=== PATIENT | female | born 1930 | race Hispanic/Latino ===

== ENCOUNTER 2016-12-10 09:18 | Emergency (ER) | payer MEDICARE ==
[2016-12-10 15:26] LABS: Hematocrit 39.8 % (30.3-42.9); Hemoglobin 13.5 gm/dl (10.1-14.3); Mean Corpuscular HGB Conc 34 % (30-34); Mean Corpuscular Hemoglobin 32 pg (28-32); Mean Corpuscular Volume 94 fl (79-97); Platelet Count 248 K/mm3 (140-440); Red Blood Count 4.22 M/mm3 (3.65-5.03); Red Cell Distribution Width 12.4 % (13.2-15.2); White Blood Count 6.4 K/mm3 (4.5-11.0)
[2016-12-10 15:39] LABS: Anion Gap 16 mmol/L; BUN/Creatinine Ratio 21.66; Blood Urea Nitrogen 13 mg/dL (7-17); Calcium 8.7 mg/dL (8.4-10.2); Carbon Dioxide 30 mmol/L (22-30); Chloride 101.6 mmol/L (98-107); Glucose 86 mg/dL (65-100); Potassium 3.6 mmol/L (3.6-5.0); Sodium 144 mmol/L (137-145)
--- NOTE | 2016-12-10 16:39 | XRay Report ---
RIGHT HIP TWO VIEWS: 12/10/16 09:18:00 CLINICAL: Right hip pain. FINDINGS: No fracture or dislocation.Moderate osteoarthritis. Superolateral joint space narrowing and a small superolateral and small inferior osteophyte. Similar changes in the left hip. Mild bilateral SI joint sclerosis. Degenerative changes in the lower lumbar spine. Normal soft tissues. IMPRESSION: Osteoarthritis.
[2016-12-10] MEDS ORDERED: TORADOL IM ONE (16:43)
[2016-12-10] MEDS ORDERED: PERCOCET 5/325 PO ONE (16:43)
[2016-12-10 17:17] LABS: Bilirubin,Urine NEG (Negative); Blood,Urine NEG (Negative); Ketones,Urine NEG (Negative); Leukocyte Esterase,Urine NEG (Negative); Mucus,Urine FEW /HPF; Nitrite,Urine NEG (Negative); Protein,Urine <15 mg/dL mg/dL (Negative); Urobilinogen,Urine < 2.0 mg/dL (<2.0)
--- NOTE | 2016-12-10 18:47 | Emergency Department Report ---
ED Extremity Problem HPI - General Chief complaint: Extremity Injury, Lower Stated complaint: RT LEG SWELLING/PAIN Time Seen by Provider: 12/10/16 14:30 Source: patient Mode of arrival: Ambulatory Limitations: Physical Limitation - History of Present Illness Initial comments: 86-year-old female with a past medical history of arthritis, diabetes, and hypertension presents to the hospital complaining of right hip/leg pain and swelling. Symptoms ongoing for greater than 1 year. Patient states pain is constant, rated nonspecific in intensity, worse with movements or positions. Patient states she has trouble abducting her legs due to the pain in the right side. Patient thinks the right leg is more swollen than the left. She has seen multiple physicians and states they can't figure out was from her. Patient denies any recent injury, dysuria, nausea, vomiting, constipation, or fever. Severity scale (0 -10): 5 - Related Data Home Medications Medication Instructions Recorded Confirmed Last Taken Lisinopril [Zestril TAB] 20 mg PO DAILY 01/29/14 11/07/15 11/07/15 05:30 traMADol [Ultram 50 MG tab] 50 mg PO Q6H PRN 01/29/14 11/07/15 11/05/14 Aspirin [Adult Low Dose Aspirin EC] 81 mg PO DAILY 11/01/15 11/07/15 11/01/15 clonazePAM [ Klonopin] 0.5 mg PO BID PRN 11/01/15 11/07/15 11/06/15 Previous Rx's Medication Instructions Recorded Last Taken Type Ibuprofen [Motrin] 600 mg PO Q6H PRN #30 tablet 11/07/15 Unknown Rx Docusate Sodium [Colace] 100 mg PO BID PRN #30 capsule 11/16/15 Unknown Rx oxyCODONE /ACETAMINOPHEN [Percocet 1 tab PO Q6HR PRN #20 tablet 11/16/15 Unknown Rx 5/325 mg] Allergies Allergy/AdvReac Type Severity Reaction Status Date / Time iv contrast Allergy Rash Uncoded 12/10/16 09:24 ED Review of Systems ROS: Stated complaint: RT LEG SWELLING/PAIN Other details as noted in HPI Comment: All other systems reviewed and negative Other: Constitutional: No fevers chills Eyes: No eye pain visual changes ENT: No ear pain or throat pain Neck: Denies pain Respiratory: Denies cough wheezing shortness of breath Cardiovascular: Denies chest pain, palpitations, syncope GI: Denies abdominal pain, nausea, vomiting, diarrhea : Denies dysuria Musculoskeletal: as per hpi Skin: Denies rash, lesions, erythema Neurologic: Denies headache, numbness, weakness Psychiatric: Denies suicidal ideation, hallucinations ED Past Medical Hx - Past Medical History Hx Hypertension: Yes Hx Diabetes: Yes Hx Renal Disease: (Renal stones) Hx Arthritis: Yes Hx Headaches / Migraines: Yes Hx Seizures: No Hx Kidney Stones: Yes Hx Asthma: No Additional medical history: L adrenal mass - Surgical History Additional Surgical History: LEFT ADRENAL GLAND REMOVED. HYSTOSCOPY - Social History Smoking Status: Current Some Day Smoker Substance Use Type: None - Medications Home Medications: Home Medications Medication Instructions Recorded Confirmed Last Taken Type Lisinopril [Zestril TAB] 20 mg PO DAILY 01/29/14 11/07/15 11/07/15 05:30 History traMADol [Ultram 50 MG tab] 50 mg PO Q6H PRN 01/29/14 11/07/15 11/05/14 History Aspirin [Adult Low Dose Aspirin EC] 81 mg PO DAILY 11/01/15 11/07/15 11/01/15 History clonazePAM [ Klonopin] 0.5 mg PO BID PRN 11/01/15 11/07/15 11/06/15 History Ibuprofen [Motrin] 600 mg PO Q6H PRN #30 tablet 11/07/15 Unknown Rx Docusate Sodium [Colace] 100 mg PO BID PRN #30 capsule 11/16/15 Unknown Rx oxyCODONE /ACETAMINOPHEN [Percocet 1 tab PO Q6HR PRN #20 tablet 11/16/15 Unknown Rx 5/325 mg] ED Physical Exam - General Limitations: Physical Limitation - Other Other exam information: General: No limitations, patient is alert in no acute distress Head exam: Atraumatic, normocephalic Eyes exam: Normal appearance ENT: Moist mucous membrane, normal oropharynx Neck exam: Normal inspection, full range of motion Respiratory exam: Clear to auscultation bilateral, no wheezes, rales, crackles Cardiovascular: Normal rate and rhythm, normal heart sounds Abdomen: Soft, nondistended, and nontender, with normal bowel sounds, no rebound, or guarding Extremity: mild right leg swelling compared to the left. No tenderness to the leg however, patient has tenderness to the inguinal area on the right. Pain is greatest at the hip joint and worsens with right leg abduction. 2+ DP pulses. No shortening or rotation noted. no Calf tenderness. Back: Normal Inspection, full range of motion, no tenderness Neurologic: Alert, oriented x3, cranial nerves intact, no motor or sensory deficit Psychiatric: normal affect, normal mood Skin: Warm, dry, intact ED Course Vital Signs 12/10/16 12/10/16 09:25 14:37 Temperature 97.9 F 97.6 F Pulse Rate 79 61 Respiratory 18 16 Rate Blood Pressure 196/89 Blood Pressure 160/54 [Left] O2 Sat by Pulse 100 100 Oximetry - Reevaluation(s) Reevaluation #1: 12/10/16 18:54 Pt treated with toradol since she will be driving home. ED Medical Decision Making - Lab Data Result diagrams: 12/10/16 15:00 12/10/16 15:00 Lab Results 12/10/16 12/10/16 12/10/16 Range/Units 15:00 15:00 16:44 WBC 6.4 (4.5-11.0) K/mm3 RBC 4.22 (3.65-5.03) M/mm3 Hgb 13.5 (10.1-14.3) gm/dl Hct 39.8 (30.3-42.9) % MCV 94 (79-97) fl MCH 32 (28-32) pg MCHC 34 (30-34) % RDW 12.4 L (13.2-15.2) % Plt Count 248 (140-440) K/mm3 Lymph % (Auto) 31.4 (13.4-35.0) % Ross % (Auto) 9.9 H (0.0-7.3) % Eos % (Auto) 2.0 (0.0-4.3) % Baso % (Auto) 1.0 (0.0-1.8) % Lymph # 2.0 (1.2-5.4) K/mm3 Ross # 0.6 (0.0-0.8) K/mm3 Eos # 0.1 (0.0-0.4) K/mm3 Baso # 0.1 (0.0-0.1) K/mm3 Seg Neutrophils % 55.7 (40.0-70.0) % Seg Neutrophils # 3.6 (1.8-7.7) K/mm3 Sodium 144 (137-145) mmol/L Potassium 3.6 (3.6-5.0) mmol/L Chloride 101.6 (98-107) mmol/L Carbon Dioxide 30 (22-30) mmol/L Anion Gap 16 mmol/L BUN 13 (7-17) mg/dL Creatinine 0.6 L (0.7-1.2) mg/dL Estimated GFR > 60 ml/min BUN/Creatinine Ratio 21.66 % Glucose 86 (65-100) mg/dL Calcium 8.7 (8.4-10.2) mg/dL Urine Color Yellow (Yellow) Urine Turbidity Clear (Clear) Urine pH 6.0 (5.0-7.0) Ur Specific [place] 1.020 (1.003-1.030) Urine Protein <15 mg/dl (Negative) mg/dL Urine Glucose (UA) Neg (Negative) mg/dL Urine Ketones Neg (Negative) mg/dL Urine Blood Neg (Negative) Urine Nitrite Neg (Negative) Urine Bilirubin Neg (Negative) Urine Urobilinogen < 2.0 (<2.0) mg/dL Ur Leukocyte Esterase Neg (Negative) Urine WBC (Auto) 2.0 (0.0-6.0) /HPF Urine RBC (Auto) 1.0 (0.0-6.0) /HPF U Epithel Cells (Auto) 6.0 (0-13.0) /HPF Urine Mucus Few /HPF - Radiology Data Radiology results: report reviewed Right hip x-ray with pelvis: Osteoarthritis Preliminary Doppler right leg: No signs of DVT - Medical Decision Making Plan to discharge patient home. She has Percocet at home for pain. No additional medication was prescribed. Outpatient orthopedic follow-up recommended for findings of osteoarthritis and chronic hip pain - Differential Diagnosis arthritis, sciatica, DVT, infection Critical Care Time: No Critical care attestation.: If time is entered above; I have spent that time in minutes in the direct care of this critically ill patient, excluding procedure time. ED Disposition Clinical Impression: Bilateral hip osteonecrosis, Chronic pain of right lower extremity Disposition: DISCHARGED TO HOME OR SELFCARE Is pt being admited?: No Does the pt Need Aspirin: No Condition: Stable Instructions: Osteoarthritis (ED), Chronic Pain (ED) Additional Instructions: Continue the current medication as needed for pain. Return if symptoms worsen. Follow-up with your doctor and the orthopedic doctor provided. Referrals: TAY VAN DO [Primary Care Provider] - 3-5 Days JAUN M ELIZONDO MD [Staff Physician] - 3-5 Days (Orhtopedic) Time of Disposition: 18:44
[2016-12-10 19:15] VITALS: BP 151/65
== END 2016-12-10 19:17 | disposition home or self-care (01) ==
LOC: ED 09:18
DX: M87.9 Osteonecrosis, unspecified (principal); M79.604 Pain in right leg; G89.29 Other chronic pain; I10 Essential (primary) hypertension; E11.9 Type 2 diabetes mellitus without complications; F17.200 Nicotine dependence, unspecified, uncomplicated
CPT/HCPCS: 36415; 73502; 80048; 81001; 85025; 93971; 96372; 99284; J1885

== ENCOUNTER 2017-03-16 09:22 | Outpatient (CLI) | payer MEDICARE ==
--- NOTE | 2017-03-16 10:19 | Mammography Report ---
Screening mammogram: Routine views are compared to prior exams most recent being 2016. The patient has been treated for right breast cancer. There is a partial right mastectomy with generalized skin thickening consistent with radiation therapy. There is a dominant mass in the left breast shown on prior examination to represent a cyst. A smaller cyst at that time is no longer present. The breast pattern is heterogeneously dense and otherwise symmetric bilaterally. Scattered benign calcifications present bilaterally. These findings are all unchanged. CAD used. Impression: Stable breast cancer therapy changes of the right breast. Dominant left breast cyst. No currently suspicious findings. Recommendation: Annual mammogram followup. BI-RADS CATEGORY: 2 = Benign ACR BI-RADS MAMMOGRAPHIC CODES: 0 = Needs additional imaging evaluation; 1 = Negative; 2 = Benign; 3 = Probably benign; 4 = Suspicious; 5 = Malignant; 6 = Known biopsy-proven malignancy COMMENT: 1. Dense breast tissue, i.e., adenosis, fibrocystic changes, etc., may obscure an underlying neoplasm. 2. Approximately 10% of cancers are not detected with mammography. 3. A negative mammography report should not delay biopsy if a clinically suspicious mass is present.
== END 2017-03-16 09:23 | disposition home or self-care (01) ==
LOC: MAMMO 09:22
PROVIDERS: ATTEND Family Medicine
DX: Z12.31 Encounter for screening mammogram for malignant neoplasm of breast (principal); I10 Essential (primary) hypertension; F41.9 Anxiety disorder, unspecified; F17.200 Nicotine dependence, unspecified, uncomplicated; Z85.3 Personal history of malignant neoplasm of breast; Z90.11 Acquired absence of right breast and nipple
CPT/HCPCS: 77067; G0202

== ENCOUNTER 2017-12-27 09:03 | Emergency (ER) | payer MEDICARE ==
[2017-12-27 09:12] VITALS: BP 141/71
[2017-12-27 11:12] LABS: Basophils # (Auto) 0.1 K/mm3 (0.0-0.1); Basophils % (Auto) 0.8 % (0.0-1.8); Eosinophils # (Auto) 0.1 K/mm3 (0.0-0.4); Eosinophils % (Auto) 2.2 % (0.0-4.3); Hematocrit 40.2 % (30.3-42.9); Hemoglobin 14.1 gm/dl (10.1-14.3); Lymphocytes # (Auto) 1.7 K/mm3 (1.2-5.4); Lymphocytes % (Auto) 26.9 % (13.4-35.0); Mean Corpuscular HGB Conc 35 % (30-34); Mean Corpuscular Hemoglobin 32 pg (28-32); Mean Corpuscular Volume 92 fl (79-97); Monocytes # (Auto) 0.4 K/mm3 (0.0-0.8); Monocytes % (Auto) 6.9 % (0.0-7.3); Platelet Count 262 K/mm3 (140-440); Red Blood Count 4.39 M/mm3 (3.65-5.03)
[2017-12-27 11:23] LABS: INR 0.83 (0.87-1.13); Partial Thromboplastin Time 31.4 Sec. (24.2-36.6)
[2017-12-27 11:25] LABS: Alanine Aminotransferase 11 units/L (7-56); Albumin 4.2 g/dL (3.9-5); BUN/Creatinine Ratio 32; Blood Urea Nitrogen 16 mg/dL (7-17); Calcium 9.4 mg/dL (8.4-10.2); Hemolysis Index 9
--- NOTE | 2017-12-27 11:52 | Emergency Department Report ---
HPI - General Chief Complaint: Extremity Injury, Lower Time Seen by Provider: 12/27/17 09:40 - HPI HPI: 87-year-old white female complaining of right groin pain, pain has been going on for the past year but worse today. Patient denies any swelling no redness. ED Past Medical Hx - Past Medical History Hx Hypertension: Yes Hx Diabetes: Yes Hx Renal Disease: (Renal stones) Hx Arthritis: Yes Hx Headaches / Migraines: Yes Hx Seizures: No Hx Kidney Stones: Yes Hx Asthma: No Additional medical history: L adrenal mass - Surgical History Additional Surgical History: LEFT ADRENAL GLAND REMOVED. HYSTOSCOPY - Social History Smoking Status: Never Smoker Substance Use Type: None - Medications Home Medications: Home Medications Medication Instructions Recorded Confirmed Last Taken Type Lisinopril [Zestril TAB] 20 mg PO DAILY 01/29/14 11/07/15 11/07/15 05:30 History traMADol [Ultram 50 MG tab] 50 mg PO Q6H PRN 01/29/14 11/07/15 11/05/14 History Aspirin [Adult Low Dose Aspirin EC] 81 mg PO DAILY 11/01/15 11/07/15 11/01/15 History clonazePAM [ Klonopin] 0.5 mg PO BID PRN 11/01/15 11/07/15 11/06/15 History Ibuprofen [Motrin] 600 mg PO Q6H PRN #30 tablet 11/07/15 Unknown Rx Docusate Sodium [Colace] 100 mg PO BID PRN #30 capsule 11/16/15 Unknown Rx oxyCODONE /ACETAMINOPHEN [Percocet 1 tab PO Q6HR PRN #20 tablet 11/16/15 Unknown Rx 5/325 mg] methOCARBAMOL [Robaxin TAB] 500 mg PO Q6H PRN #14 tablet 12/27/17 Unknown Rx ED Review of Systems ROS: Stated complaint: RIGHT LEG PAIN Other details as noted in HPI Comment: All other systems reviewed and negative Gastrointestinal: denies: nausea, vomiting Musculoskeletal: joint swelling, myalgia. denies: back pain Physical Exam - Physical Exam Vital Signs: Vital Signs 12/27/17 09:08 Temperature 98 F Pulse Rate 67 Respiratory 18 Rate Blood Pressure 141/71 O2 Sat by Pulse 96 Oximetry Physical Exam: - Physical Exam Physical Exam: - General Limitations: No Limitations General appearance: alert, in no apparent distress. - Head Head exam: Present: atraumatic, normocephalic - Eye Eye exam: Present: normal appearance - ENT ENT exam: Present: mucous membranes moist - Neck Neck exam: Present: normal inspection - Respiratory Respiratory exam: Present: normal lung sounds bilaterally. Absent: respiratory distress - Cardiovascular Cardiovascular Exam: Present: normal rhythm. Absent: systolic murmur, diastolic murmur, rubs, gallop - GI/Abdominal GI/Abdominal exam: Present: soft, normal bowel sounds - Extremities Exam Extremities exam: Present: normal inspection Right groin tenderness, no hernia no redness - Back Exam Back exam: Present: normal inspection - Neurological Exam Neurological exam: Present: alert, oriented X3 - Psychiatric Psychiatric exam: normal affect and mood - Skin Skin exam: Present: warm, dry, intact, normal color. Absent: rash ED Course Vital Signs 12/27/17 09:08 Temperature 98 F Pulse Rate 67 Respiratory 18 Rate Blood Pressure 141/71 O2 Sat by Pulse 96 Oximetry ED Medical Decision Making - Lab Data Result diagrams: 12/27/17 11:03 12/27/17 11:03 Critical care attestation.: If time is entered above; I have spent that time in minutes in the direct care of this critically ill patient, excluding procedure time. ED Disposition Clinical Impression: Right groin pain Disposition: DC-01 TO HOME OR SELFCARE Is pt being admited?: No Does the pt Need Aspirin: No Condition: Stable Prescriptions: methOCARBAMOL [Robaxin TAB] 500 mg PO Q6H PRN #14 tablet PRN Reason: Muscle Spasm Referrals: PRIMARY CARE, [Primary Care Provider] - 3-5 Days
== END 2017-12-27 12:13 | disposition home or self-care (01) ==
LOC: ED 09:03
DX: R10.31 Right lower quadrant pain (principal); I10 Essential (primary) hypertension; E11.9 Type 2 diabetes mellitus without complications; M19.90 Unspecified osteoarthritis, unspecified site; G43.909 Migraine, unspecified, not intractable, without status migrainosus; E89.6 Postprocedural adrenocortical (-medullary) hypofunction; Z87.442 Personal history of urinary calculi
CPT/HCPCS: 36415; 80053; 85025; 85379; 85610; 85730

== ENCOUNTER 2021-12-11 12:22 | Emergency (ER) | payer MEDICARE ==
--- NOTE | 2021-12-11 13:29 | XRay Report ---
RIGHT ANKLE 3 VIEW INDICATION / CLINICAL INFORMATION: ankle injury. COMPARISON: None available. FINDINGS: BONES / JOINT(S): Mildly displaced fracture of the lateral malleolus. No other appreciable fracture. Ankle mortise alignment appears normal. SOFT TISSUES: No significant abnormality. ADDITIONAL FINDINGS: None. Signer Name: Luis Cason MD Signed: 12/11/2021 1:25 PM Workstation Name: [employer]
[2021-12-11 14:22] VITALS: BP 145/52
[2021-12-11] MEDS ORDERED: HYDROcodone/ACETAMINOPHEN 5-325 MG TAB PO ONE (15:39)
--- NOTE | 2021-12-11 15:39 | Emergency Department Report ---
HPI - General Chief Complaint: Syncope Time Seen by Provider: 12/11/21 15:19 - HPI HPI: Room 19 Patient is an 89-year-old female present with chief complaint of right ankle pain. The patient states 5 days ago while working in the yard while bending ov er she felt dizzy and fell but never lost consciousness. Patient states her neighbors helped her up and got her into the house. The patient states for the past few days she is able to continue her activities of daily living however she noticed that her right ankle with swelling. Patient complains of pain in the right ankle. Patient denied ever having chest pain or shortness of breath. Patient denies having any other forms of pain. ED Past Medical Hx - Past Medical History Hx Hypertension: Yes Hx Diabetes: Yes Hx Renal Disease: (Renal stones) Hx Arthritis: Yes Hx Headaches / Migraines: Yes Hx Kidney Stones: Yes Additional medical history: L adrenal mass - Surgical History Hx Breast Surgery: Yes (Lumpectomy) Additional Surgical History: LEFT ADRENAL GLAND REMOVED. HYSTOSCOPY - Social History Smoking Status: Never Smoker Substance Use Type: None - Medications Home Medications: Home Medications Medication Instructions Recorded Confirmed Last Taken Type lisinopriL [Zestril TAB] 20 mg PO DAILY 01/29/14 11/07/15 11/07/15 05:30 History traMADoL [Ultram 50 MG tab] 50 mg PO Q6H PRN 01/29/14 11/07/15 11/05/14 History Aspirin [Adult Low Dose Aspirin EC] 81 mg PO DAILY 11/01/15 11/07/15 11/01/15 History clonazePAM [ Klonopin] 0.5 mg PO BID PRN 11/01/15 11/07/15 11/06/15 History Ibuprofen [Motrin] 600 mg PO Q6H PRN #30 tablet 11/07/15 Unknown Rx Docusate Sodium [Colace] 100 mg PO BID PRN #30 capsule 11/16/15 Unknown Rx oxyCODONE /ACETAMINOPHEN [Percocet 1 tab PO Q6HR PRN #20 tablet 11/16/15 Unknown Rx 5/325 mg] methOCARBAMOL [Robaxin TAB] 500 mg PO Q6H PRN #14 tablet 12/27/17 Unknown Rx HYDROcodone/APAP 5-325 [[place] 1 - 2 each PO Q6HR PRN #20 tablet 12/11/21 Unknown Rx 5/325] ED Review of Systems ROS: Stated complaint: RT ANKLE SWOLLEN Other details as noted in HPI Constitutional: no symptoms reported Eyes: denies: eye pain ENT: denies: throat pain Respiratory: denies: shortness of breath Cardiovascular: denies: chest pain Endocrine: no symptoms reported Gastrointestinal: denies: abdominal pain Genitourinary: denies: dysuria Musculoskeletal: arthralgia Neurological: denies: headache Physical Exam - Physical Exam Vital Signs: Vital Signs 12/11/21 12/11/21 12/11/21 12:36 14:20 14:22 Temperature 98.2 F Pulse Rate 82 69 Respiratory 18 18 Rate Blood Pressure 157/68 Blood Pressure 145/52 [Left] O2 Sat by Pulse 93 97 97 Oximetry Physical Exam: GENERAL: The patient is well-developed well-nourished female lying on stretcher not appearing to be in acute distress. [] HEENT: Normocephalic. Atraumatic. Extraocular motions are intact. Patient has moist mucous membranes. NECK: Supple. Trachea midline CHEST/LUNGS: Clear to auscultation. There is no respiratory distress noted. HEART/CARDIOVASCULAR: Regular. There is no tachycardia. There is no gallop rub or murmur. ABDOMEN: Abdomen is soft, nontender. Patient has normal bowel sounds. There is no abdominal distention. SKIN: There is no rash. There is no edema. There is no diaphoresis. NEURO: The patient is awake, alert, and oriented. The patient is cooperative. The patient has no focal neurologic deficits. The patient has normal speech. Cranial nerves II through XII grossly intact MUSCULOSKELETAL: There is tenderness to the right ankle at the lateral malleolus. Mild edema. No laceration seen ED Course Vital Signs 12/11/21 12/11/21 12/11/21 12:36 14:20 14:22 Temperature 98.2 F Pulse Rate 82 69 Respiratory 18 18 Rate Blood Pressure 157/68 Blood Pressure 145/52 [Left] O2 Sat by Pulse 93 97 97 Oximetry ED Medical Decision Making - Lab Data Accu-Chek 95 - Radiology Data Radiology results: report reviewed (Right ankle x-ray), image reviewed (Right ankle x-ray) interpreted by me: Right ankle [id number] fibula fracture, no dislocation, no foreign body - Differential Diagnosis Ankle fracture, ankle sprain Critical care attestation.: If time is entered above; I have spent that time in minutes in the direct care of this critically ill patient, excluding procedure time. ED Disposition Clinical Impression: Closed fracture of right distal fibula Disposition: HOME / SELF CARE / HOMELESS Is pt being admited?: No Does the pt Need Aspirin: No Condition: Stable Instructions: Nondisplaced Fibular Ankle Fracture Treated With Immobilization, Adult, Cast or Splint Care, Adult Additional Instructions: Return to the emergency department should you develop worsening symptoms, inability to tolerate food or liquids, high fever or any other concerns Prescriptions: HYDROcodone/APAP 5-325 [[place] 5/325] 1 - 2 each PO Q6HR PRN #20 tablet PRN Reason: Pain Referrals: PRIMARY CARE, [Primary Care Provider] - 3-5 Days Time of Disposition: 16:00
--- NOTE | 2021-12-12 10:32 | Electrocardiograph Report ---
[facility] Test Date: 2021-12-11 Test Time: 12:47:55 Pat Name: SUSANNA GUERRA Department: Room: Gender: F Morning Caregiver: MADDIE : [id number] Requested By: ED DOC Order Number: [id number] Reading MD: Rafita Gresham Measurements Intervals [place] Rate: 75 P: 144 IN: 74 QRS: -15 QRSD: 141 T: -4 QT: 425 QTc: 474 Interpretive Statements Sinus or ectopic atrial rhythm Right bundle branch block No previous ECG available for comparison Electronically Signed On 12-12-2021 10:31:22 EDT by Rafita Gresham
== END 2021-12-11 17:20 | disposition home or self-care (01) ==
LOC: ED 12:22
DX: S82.401A Unspecified fracture of shaft of right fibula, initial encounter for closed fracture (principal); I10 Essential (primary) hypertension; E11.9 Type 2 diabetes mellitus without complications; X58.XXXA Exposure to other specified factors, initial encounter; Y93.89 Activity, other specified; Y92.89 Other specified places as the place of occurrence of the external cause; Y99.8 Other external cause status
CPT/HCPCS: 82962; 93005; 99283